=== PATIENT | male | born 1985 | race Caucasian/White ===

== ENCOUNTER 2021-05-25 07:36 | Observation (INO) ==
[2021-05-25] MEDS ORDERED: 0.9 % Sodium Chloride 1,000 ML ONE ×3 (07:44→10:44)
[2021-05-25] MEDS ORDERED: Ondansetron 4 MG/2 ML VIAL IVP PRN (08:48)
[2021-05-25] MEDS ORDERED: Albuterol 2.5 MG/3 ML NEBULIZER IH PRN (08:48)
[2021-05-25] MEDS ORDERED: *HR* OxyCODONE Immed Rel 5 MG TABLET PO PRN (08:48)
[2021-05-25] MEDS ORDERED: *HR* FentaNYL (PF) 100 MCG/2 ML VIAL IVP PRN (08:48)
[2021-05-25] MEDS ORDERED: Protamine Sulfate 50 MG/5 ML VIAL IVP ONE (09:11)
[2021-05-25] MEDS ORDERED: ISOVUE-370 200 ML INFUS..BTL ONE (09:12)
[2021-05-25] MEDS ORDERED: Heparin 1,000 UNITS/500 mL 2,000 ML ONE (09:12)
[2021-05-25] MEDS ORDERED: *HR* Heparin 10,000 UNIT/10 ML VIAL ONE (09:12)
[2021-05-25] MEDS ORDERED: *HR* Midazolam HCl 2 MG/2 ML VIAL ONE (09:15)
[2021-05-25] MEDS ORDERED: *HR* FentaNYL (PF) 100 MCG/2 ML VIAL ONE (09:15)
[2021-05-25] MEDS ORDERED: *HR* FentaNYL (PF) 250 MCG/5 ML VIAL ONE (11:18)
[2021-05-25] MEDS ORDERED: Naloxone 0.4 MG/ML INJ IVP PRN (11:46)
[2021-05-25] MEDS: Acetaminophen 325 MG TABLET PO PRN ×2 (15:01→20:57)
[2021-05-25] MEDS: Apixaban 5 MG TABLET PO SCH (20:58)
[2021-05-25] MEDS ORDERED: methocarbamoL 750 MG TABLET PO PRN (21:38)
[2021-05-26] MEDS: Apixaban 5 MG TABLET PO SCH (07:51)
[2021-05-26] MEDS: Acetaminophen 325 MG TABLET PO PRN (07:53)
[2021-05-26 10:27] VITALS: BP 125/73; PULSE 66; TEMP 97.9; O2SAT 97
== END 2021-05-26 11:44 | disposition home or self-care (01) ==
LOC: 2NENU 07:36 → INVDIALAB 07:36 → 2NENU 13:50
PROVIDERS: ADMIT Internal Medicine Clinical Cardiac Electrophysiology; ATTEND Internal Medicine Clinical Cardiac Electrophysiology